=== PATIENT | male | born 1990 | race Caucasian/White ===

== ENCOUNTER 2024-08-29 09:56 | Inpatient (IN) | payer MEDICAID ==
[~2024-08-29] VITALS: Ht 165.1 cm; Wt 68.2 kg
--- NOTE | 2024-08-29 10:06 | Physician Documentation ---
History of Present Illness ~ Chief Complaint: Overdose Stated Complaint: OD Time Seen by MD: 09:59 Source: patient, EMS HPI 34-year-old male no pertinent medical history presenting for overdose. Patient reports feeling fine he went to the bathroom to use fentanyl he was found unresponsive on the floor. He was dragged out by EMS and slowly began waking up. She reports that he likely aspirated and had copious secretions which were suctioned in the field. Patient is currently awake endorsing fentanyl use and shortness of breath. No chest pain. Medication Reconciliation Allergies: Uncoded Allergies: PCN (Allergy, Unknown, 08/29/24) Review of Systems All Other Systems at this time: Reviewed and Negative Constitutional: Denies: fever Physical Exam Vital Signs: RN Vital Signs have been reviewed: Yes, Temperature: 97.7, Heart Rate: 104, Respiratory Rate: 17, BP: 121/79, Pulse Oximetry: 92, Weight: 68.180 Oxygen Flow Rate: 4.0 Physical Exam Diaphoretic Awake alert oriented, fatigued Pulmonary diffuse rhonchi right perez Cardiac no murmur Abdomen is soft nontender Lower extremity no edema Progress Progress Note 12:25 p.m. I reassessed the patient he had taken off his oxygen and his pulse oximeter. I reattached the pulse oximeter and his oxygen was 85% on room air with a good plus. Put him back on 2 L nasal cannula with improvement in O2 Results/Orders Reviewed/noted all lab results: Yes Results/Orders Orders - MARGI ENCINAS MD Chest,Single View (08/29/24 ) Culture Blood (08/29/24 12:03) Page Hospitalist (08/29/24 12:03) Fill Out Med Reconciliation (08/29/24 12:03) Completed Orders - MARGI ENCINAS MD Chest,Single View (08/29/24 ) Cbc/Diff (08/29/24 10:38) BMP (08/29/24 10:38) Troponin (Single) (08/29/24 10:38) PBNP (08/29/24 10:38) Man Diff (08/29/24 10:10) Pathology Review (08/29/24 10:10) Ringers Solution, Lacted (Lactated Ringe (08/29/24 12:05) Ampicillin/Sulbac 3gm/Ns 100ml (Unasyn 3 (08/29/24 14:00) Lacticsepsis (08/29/24 12:03) Electrocardiogram (08/29/24 09:58) Ceftriaxone 2gm/D5w 50ml Bag (Rocephin 2 (08/29/24 12:25) Drug Screen, Urine (08/29/24 12:26) Medications Received in ER Medications (Trade) Dose Ordered Sig/Anand Route PRN Reason Start Time Stop Time Status Last Admin Dose Admin Lactated Ringer's 1,000 ml @ 1,000 mls/hr ONCE ONCE IV 08/29/24 12:05 08/29/24 13:04 DC 08/29/24 12:48 1,000 MLS/HR Ceftriaxone Sodium/Dextrose 50 ml @ 100 mls/hr ONCE ONCE IV 08/29/24 12:25 08/29/24 12:55 DC 08/29/24 12:48 100 MLS/HR Sodium Chloride 1,000 ml @ 70 mls/hr [id number] IV 08/29/24 12:45 08/29/24 15:01 70 MLS/HR Vital Signs 08/29/24 08/29/24 08/29/24 08/29/24 09:57 10:53 11:23 11:24 Temp 97.7 97.7 97.7 Pulse 104 99 95 Resp 17 19 16 B/P (MAP) 121/79 124/74 (91) 111/69 (83) Pulse Ox 92 96 93 O2 Flow Rate 4.0 4.0 6.0 08/29/24 12:24 Pulse 87 Resp 16 B/P (MAP) 98/66 (77) Pulse Ox 87 O2 Flow Rate 0 Laboratory Tests Test 08/29/24 10:10 08/29/24 12:33 White Blood Count 15.5 H Red Blood Count 4.82 Hemoglobin 14.1 Hematocrit 44.4 Mean Corpuscular Volume 92.0 Mean Corpuscular Hemoglobin 29.2 Mean Corpuscular Hemoglobin Concent 31.7 L Red Cell Distribution Width 14.6 H Platelet Count 274 Mean Platelet Volume 9.6 Neutrophils (%) (Auto) 36.1 L Lymphocytes (%) (Auto) 53.7 H Monocytes (%) (Auto) 6.3 Eosinophils (%) (Auto) 3.1 Basophils (%) (Auto) 0.8 Neutrophils # (Auto) 5.6 Lymphocytes # (Auto) 8.3 H Monocytes # (Auto) 1.0 H Eosinophils # (Auto) 0.5 Basophils # (Auto) 0.1 CBC Comment Differential Total Cells Counted 100 Neutrophils % (Manual) 33.0 L Lymphocytes % (Manual) 56.0 H Monocytes % (Manual) 7.0 Eosinophils % (Manual) 4.0 Platelet Estimate Normal Red Blood Cell Morphology Normal Basophilic Stippling Hematology Pathologist Comment See note Sodium Level 140 Potassium Level 4.4 Chloride Level 103 Carbon Dioxide Level 22.8 L Anion Gap 14 Blood Urea Nitrogen 11 Creatinine 1.33 H Estimated GFR/1.73 m2 62 BUN/Creatinine Ratio 8.3 L Glucose Level 324 H Calcium Level 8.5 Troponin I High Sensitivity 38 Pro-B-Type Natriuretic Peptide 215 H Albumin 3.4 Chemistry Comments Lactic Acid Level 2.9 H Microbiology Date/Time Source Procedure Growth Status 08/29/24 12:33 Blood Arm Right Blood Culture - Preliminary NEGATIVE (LESS THAN 24 HOURS) Resulted EKG/XRAY/CT/US/VASC/MRI EKG : Additional Comment EKG independently interpreted by myself time 9:58 a.m. indication shortness of breath normal sinus rhythm rate 96 normal axis normal intervals LVH no ST abnormality Chest X-Ray : Additional Comments Chest x-ray independently interpreted by myself shows no pneumothorax, diffuse pulmonary edema no effusion Medical Decision Making Differential Dx:Considerations: Include: Drug Overdose-Accidental Additional Comment Aspiration pneumonia, pneumonitis Departure Disposition: ADMITTED INPATIENT Admitted to Inpatient Unit: to hospitalist Impression: Primary Impression: Pneumonia Qualified Codes: J18.9 - Pneumonia, unspecified organism Additional Impressions: Hyperglycemia Substance abuse Lactic acid acidosis Referrals: NO PRIMARY CARE PROVIDER (PCP) Critical Care Note Total Time (mins): 30 Critical Care Note The very real possibility of a deterioration of this patient's condition required the highest level of my preparedness for sudden, emergent intervention. I provided critical care services, which included medication orders, frequent reevaluations of the patient's condition and response to treatment, ordering and reviewing test results, and discussing the case with various consultants. Excludes time spent performing separately billable procedures. The critical care time associated with the care of the patient was 30 minutes in the management of lactic acidosis requiring intervention Signature Scribe Signature: shira Attestation: MARGI Castro MD Aug 29, 2024 10:06
--- NOTE | 2024-08-29 10:54 | RADIOLOGY REPORT ---
CHEST RADIOGRAPH Indication: sob Technique: Single frontal view of the chest was obtained Comparison: None FINDINGS: Lines and Tubes: None Lungs: No focal consolidation. Pleura: No effusion. No pneumothorax. Cardiomediastinal contours: Unremarkable Bones: No acute osseous abnormality. IMPRESSION: Pulmonary edema
[2024-08-29 10:55] LABS: BASOPHILS # (AUTO) 0.1 X10'3 (0-0.2); EOSINOPHILS # (AUTO) 0.5 X10'3 (0-0.9); LYMPHOCYTES % (AUTO) 53.7 % (21-51)
[2024-08-29 10:56] LABS: BASOPHILS % (AUTO) 0.8 % (0-1); EOSINOPHILS % (AUTO) 3.1 % (0-6); HEMATOCRIT 44.4 % (42.0-52.0); HEMOGLOBIN 14.1 g/dl (14.0-17.9); LYMPHOCYTES # (AUTO) 8.3 X10'3 (1.1-4.8); MEAN CORPUSCULAR HEMOGLOBIN 29.2 PG (27.0-31.0); MEAN CORPUSCULAR HGB CONC 31.7 g/dL (33.0-36.5); MEAN PLATELET VOLUME 9.6 FL (7.4-10.4); MONOCYTES % (AUTO) 6.3 % (2-12); NEUTROPHILS # (AUTO) 5.6 X10'3 (1.8-7.7); NEUTROPHILS % (AUTO) 36.1 % (42-75); PLATELET COUNT 274 X10'3 (140-440); RED BLOOD COUNT 4.82 X10'6 (4.70-6.10); RED CELL DISTRIBUTION WIDTH 14.6 % (11.5-14.5); WHITE BLOOD COUNT 15.5 X10'3 (4.5-11.0)
[2024-08-29 11:11] LABS: ALBUMIN 3.4 G/DL (3.4-5.0); ANION GAP 14 (8-16); BLOOD UREA NITROGEN 11 MG/DL (7-18); BUN/CREATININE RATIO 8.3 (10.0-20.0); CALCIUM 8.5 MG/DL (8.5-10.1); CHLORIDE 103 MMOL/L (99-107); CREATININE 1.33 MG/DL (0.60-1.10); POTASSIUM 4.4 MMOL/L (3.5-5.1); PRO BRAIN NATRIURETIC PEPTIDE 215 PG/ML (0-125); SODIUM 140 MMOL/L (135-145); TOTAL CARBON DIOXIDE 22.8 MMOL/L (24-32); eCRCL 69 ML/MIN; eGFR 62 ML/MIN
[2024-08-29 11:16] LABS: GLUCOSE 324 MG/DL (70-104)
[2024-08-29 11:23] LABS: PLATELET ESTIMATE NORMAL; TOTAL CELLS COUNTED 100
[2024-08-29] MEDS ORDERED: ampicillin/sulbac 3gm/NS 100ml 100 ML IV ONE ×2 (12:10→14:00)
--- NOTE | 2024-08-29 12:10 | ELECTROCARDIOGRAPH REPORT ---
[facility] Test Date: 2024-08-29 Test Time: 09:58:58 Pat Name: MELBA SHEN Department: EMERGENCY ROOM Room: Gender: M Medical Doctor Md/Medical Director: PRICILLA : 1990 Requested By: MARGI ENCINAS Order Number: [id number] Reading MD: Measurements Intervals [place] Rate: 96 P: 72 NM: 161 QRS: 76 QRSD: 92 T: -9 QT: 360 QTc: 455 Interpretive Statements Sinus rhythm Borderline T wave abnormalities Please click the below link to view image of tracing.
[2024-08-29] MEDS ORDERED: magnesium Cl slow-release 64mg tablet PO PRN (12:45)
[2024-08-29] MEDS ORDERED: potassium Cl 40MEQ/1/2NS 520ml 520 ML IV PRN (12:45)
[2024-08-29] MEDS ORDERED: magnesium sulf-water 2g/50mL 50 ML IV PRN (12:45)
[2024-08-29] MEDS ORDERED: acetaminophen 325mg tablet PO PRN ×2 (12:45)
[2024-08-29] MEDS ORDERED: potassium Cl 20 mEq SR tablet PO PRN ×2 (12:45)
[2024-08-29] MEDS ORDERED: magnesium sulf-water 4G/100mL 100 ML IV PRN (12:45)
[2024-08-29] MEDS ORDERED: ondansetron/PF 4mg/2ml inj IV PRN (12:45)
[2024-08-29] MEDS: CefTRIAXone 2gm/D5W 50ml BAG 50 ML IV ONE (12:48)
[2024-08-29] MEDS: ringers solution, lacted 1,000 ML IV ONE ×2 (12:48→21:14)
[2024-08-29 13:32] LABS: URINE AMPHETAMINE SCREEN NEGATIVE (Neg); URINE BARBITUATE SCREEN NEGATIVE (Neg); URINE BENZODIAZEPINES SCREEN NEGATIVE (Neg); URINE CANNABINOID SCREEN NEGATIVE (Neg); URINE COCAINE SCREEN NEGATIVE (Neg); URINE METHADONE SCREEN NEGATIVE (Neg); URINE OPIATE SCREEN NEGATIVE (Neg); URINE PHENCYCLIDINE SCREEN NEGATIVE (Neg)
[2024-08-29 14:17] LABS: ABG BASE EXCESS -5.3 mmol/L (-2.0-3.0); ABG HCO3 20.2 mmol/L (21.0-28.0); ABG OXYGEN SATURATION 89.8 % (94.0-98.0); ABG PCO2 (T) 38.3 mmHg (35.0-48.0); ABG PH (T) 7.337 (7.350-7.450); ABG PO2 (T) 58.4 mmHg (83.0-108.0); ALLEN'S TEST POSITIVE; FCOHb 0.3 % (0.5-1.5); FHHb 10.2 % (0.0-5.0); FLOW 5 L/min; FMetHb 0.1 % (0.0-1.5); FO2Hb 89.4 % (94.0-98.0); MODE NASAL CANNULA; PATIENT TEMPERATURE 36.5; TOTAL HEMOGLOBIN 14.7 G/dl (13.5-17.5)
[2024-08-29] MEDS: normal saline 1000ml 1,000 ML IV SCH (15:01)
[2024-08-29] MEDS: azithromycin/NS 500mg/250ml 250 ML IV SCH (15:02)
[2024-08-29 17:22] VITALS: PULSE 90; RESP 17; O2SAT 93
[2024-08-29] MEDS: albuterol 2.5 MG/3 ML nebule NEB SCH (17:22)
[2024-08-29 17:30] VITALS: PULSE 83; RESP 27
[2024-08-29] MEDS ORDERED: NO HOME MEDS (17:43)
[2024-08-29 18:00] VITALS: BP 111/48; PULSE 92; RESP 13; TEMP 98.5; O2SAT 98
[2024-08-29] MEDS: methylPREDNISolone sod succ 125mg/2ml vial IV SCH (19:49)
[2024-08-29] MEDS: heparin, porcine 5000 units/ml vial SQ SCH (19:50)
[2024-08-29 20:00] VITALS: RESP 13; O2SAT 98
[2024-08-29] MEDS: nicotine 14mg patch - 24hr TD SCH (20:05)
--- NOTE | 2024-08-29 20:07 | HISTORY AND PHYSICAL ---
History & Physical Providers to ~ History of Present Illness Reason for Admit\Complaint: Incidental fentanyl overdose History of Present Illness Patient is 34-year-old male with no pertinent past medical history. He lives in sober living environment currently. He mentioned that he was on Suboxone which he gets from [facility] in [place]. He ran out of his Suboxone and to prevent the withdrawals he took the fentanyl from [facility]. When he took fentanyl he was with his . He went to the bathroom to use fentanyl and he was found unresponsive on the floor.He was dragged out by EMS and slowly began waking up. he reports that he likely aspirated and had copious secretions which were suctioned in the field. Patient is currently awake endorsing fentanyl use and shortness of breath. No chest pain. Patient does not use any other medications and has no primary care physician at this point of time. Patient does use vaping. Further workup done in ER x-ray showed, diffuse pulmonary edema no effusion. He was requiring 3-4 L of oxygen in ER. Hospitalist services contacted for admission for aspiration pneumonia and pneumonitis. Patient denies any other symptoms . Allergies: Uncoded Allergies: PCN (Allergy, Unknown, 08/29/24) Home Medications Home Medications Active Reported No Home Medications (Home Med List) Each Past Medical History Past Medical History No pertinent past medical history Past Surgical History Surgical History Comment No pertinent past surgical history Past Social History Social History Comment He lives in sober living environment currently. Able to ambulate. He does vape denied use of any alcohol. Fentanyl use present Exam Vitals: Vital Signs Date Time Temp Pulse Resp B/P (MAP) Pulse Ox O2 Delivery O2 Flow Rate FiO2 08/29/24 18:30 97 08/29/24 17:30 27 Room Air 0.0 21 08/29/24 17:22 93 08/29/24 16:35 97.7 105/57 (73) General: General-patient not in any acute distress, alert awake oriented, ill-appearing, age-appropriate HEENT-atraumatic normocephalic, neck supple without elevated JVD, no thyromegaly or carotid bruit. No lymphadenopathy bilaterally. Eyes-no icterus or pallor seen in eyes Chest-decreased lung sounds to auscultation bilaterally, breathing nonlabored no tachypnea, no wheezing, no crepitation, no crackles. Heart-S1-S2 normal, regular heart rate no murmur Abdomen bowel sounds positive on auscultation, soft nondistended nontender no guarding, no rigidity Skin no active skin rash Neurology-grossly intact, nonfocal alert awake oriented Extremity- no pedal edema able to move all 4 extremities Psychiatry - patient is not confused or agitated cooperated during physical examination Diagnostic Data Last Recorded Lab Results: 08/29/24 1010 08/29/24 1010 Additional Plan Patient is 34-year-old male with no pertinent past medical history. Patient is admitted for aspiration pneumonia and pneumonitis, Drug Overdose- AccidentalLactic acid acidosis. Patient is started on nebulizer, steroids and antibiotic therapy. We will continue to monitor patient's vitals and oxygen saturation. Patient was strongly advised to quit smoking drugs and risks explained. Geospatial Developer consultation ordered. Code status discussed with the patient patient wishes to stay full code. Patient's current condition is guarded I will continue to follow patient in a.m. further management depending on response to treatment. Date of Service: Aug 29, 2024 Billing Provider: MARGIE PEARSON MD Common Visit Codes: [id number] INP/OBS CARE (HIGH) Secondary Visit Codes: [id number] CARE PLAN 30 MINUTES MARGIE PEARSON MD Aug 29, 2024 20:07
[2024-08-29 22:00] VITALS: BP 125/63; PULSE 100; RESP 20; TEMP 98.3; O2SAT 96
[2024-08-29] MEDS: loperamide 2mg capsule PO PRN (22:52)
[2024-08-29] MEDS: LORazepam 0.5 MG tablet PO PRN (22:52)
[2024-08-29] MEDS: OLANZapine **IM** 10 mg inj. IM ONE (23:41)
[2024-08-29] MEDS: LORazepam 1 MG tablet PO PRN (23:42)
[2024-08-30] VITALS (28 sets, daily range): BP systolic 105–146; BP diastolic 55–110; PULSE 40–146; RESP 17–42; O2SAT 93–99
[2024-08-30] MEDS ORDERED: haloperidol lactate 5mg/ml inj IM PRN (00:10)
[2024-08-30] MEDS: haloperidol lactate 5mg/ml inj IM ONE ×2 (00:29→01:02)
[2024-08-30] MEDS: LORazepam 2 mg/ml vial IV ONE (01:19)
[2024-08-30] MEDS: dexmedetomidin/NS 400mcg/100ml 100 ML IV SCH (02:54)
[2024-08-30] MEDS ORDERED: haloperidol lactate 5mg/ml inj IVH PRN (03:15)
--- NOTE | 2024-08-30 03:19 | HISTORY AND PHYSICAL ---
History & Physical - Short Providers to CC ~ History of Present Illness Chief Complain & History Altered mental status, agitation Patient is 34-year-old male with no pertinent past medical history. History from CHART. He lives in sober living environment currently. He mentioned that he was on Suboxone which he gets from [facility] in [place]. He ran out of his Suboxone and to prevent the withdrawals he took the fentanyl from [facility]. When he took fentanyl he was with his . He went to the bathroom to use fentanyl and he was found unresponsive on the floor.He was dragged out by EMS and slowly began waking up. he reports that he likely aspirated and had copious secretions which were suctioned in the field. Patient is currently awake endorsing fentanyl use and shortness of breath. No chest pain. Patient does not use any other medications and has no primary care physician at this point of time. Patient does use vaping. Further workup done in ER x-ray showed, diffuse pulmonary edema no effusion. He was requiring 3-4 L of oxygen in ER.Admitted to floor and given ativan and Haldol. Transferred to ICU for withdrawal and agitation. Allergies: Uncoded Allergies: PCN (Allergy, Unknown, 08/29/24) Home Medications Home Medications Active Reported No Home Medications (Home Med List) Each Past Medical History Past Medical History Drug abuse Exam Last recorded Lab results: 08/29/24 1010 08/29/24 1010 Vitals: Vital Signs Date Time Temp Pulse Resp B/P (MAP) Pulse Ox O2 Delivery O2 Flow Rate FiO2 08/30/24 03:00 98.6 110 39 146/110 (122) 93 Nasal Cannula 2.0 08/30/24 00:00 36 Counseling Services Smoking & Tobacco Cessation: N/A Advance Care Planning Advanced Care planning: N/A Problem\Assessment\Plan Additional Plan Impression: 1. Drug withdrawal 2. Agitation 3. Altered mental status 4. Leukocytosis Plan: Admit to ICU Ativan 1 mg IV q1hprn agitation Haldol 1 mg IV q1hprn agitation ANtibiotics empiric UA, Blood cx 2 Precedex drip Monitor for any seizure activity Low threshold for intubation and seadation Full code DVT ppx LULY NIETO MD Aug 30, 2024 03:19
[2024-08-30] MEDS: LORazepam 2 mg/ml vial ONE (03:41)
[2024-08-30] MEDS: LORazepam 2 mg/ml vial IV PRN (03:41)
[2024-08-30 03:54] LABS: BASOPHILS % (AUTO) 0.1 % (0-1); EOSINOPHILS % (AUTO) 0 % (0-6); HEMATOCRIT 37.6 % (42.0-52.0); HEMOGLOBIN 13.1 g/dl (14.0-17.9); LYMPHOCYTES # (AUTO) 0.8 X10'3 (1.1-4.8); LYMPHOCYTES % (AUTO) 5.9 % (21-51); MEAN CORPUSCULAR HEMOGLOBIN 29.8 PG (27.0-31.0); MEAN CORPUSCULAR HGB CONC 34.8 g/dL (33.0-36.5); MEAN CORPUSCULAR VOLUME 85.6 FL (78-98); MEAN PLATELET VOLUME 8.5 FL (7.4-10.4); MONOCYTES # (AUTO) 0.3 X10'3 (0-0.9); MONOCYTES % (AUTO) 1.9 % (2-12); NEUTROPHILS # (AUTO) 12.1 X10'3 (1.8-7.7); NEUTROPHILS % (AUTO) 92.1 % (42-75); PLATELET COUNT 228 X10'3 (140-440); RED BLOOD COUNT 4.39 X10'6 (4.70-6.10); RED CELL DISTRIBUTION WIDTH 13.8 % (11.5-14.5); WHITE BLOOD COUNT 13.2 X10'3 (4.5-11.0)
[2024-08-30 04:16] LABS: ALANINE AMINOTRANSFERASE 31 U/L (12-78); ALBUMIN 3.4 G/DL (3.4-5.0); ALBUMIN/GLOBULIN RATIO 1.1 (1.1-1.5); ALKALINE PHOSPHATASE 62 IU/L (46-116); ANION GAP 9 (8-16); ASPARTATE AMINO TRANSFERASE 45 U/L (10-37); BILIRUBIN,TOTAL 0.6 MG/DL (0.1-1.0); BLOOD UREA NITROGEN 9 MG/DL (7-18); BUN/CREATININE RATIO 11.8 (10.0-20.0); CALCIUM 9.1 MG/DL (8.5-10.1); CHLORIDE 110 MMOL/L (99-107); CREATININE 0.76 MG/DL (0.60-1.10); GLUCOSE 147 MG/DL (70-104); MAGNESIUM 1.6 MG/DL (1.5-2.4); SODIUM 145 MMOL/L (135-145); TOTAL CARBON DIOXIDE 26.4 MMOL/L (24-32); TOTAL PROTEIN 6.6 G/DL (6.4-8.2); eCRCL 120 ML/MIN; eGFR > 90 ML/MIN
[2024-08-30 04:24] LABS: PHOSPHORUS 0.9 MG/DL (2.3-4.5)
--- NOTE | 2024-08-30 06:23 | PROGRESS NOTE ---
Progress Note Dictate Providers to CC ~ Progress Note: No new acute issues overnight Central Line/PICC still needed: N\A Bonner Indications Met/Not Met: F/C Indications Met Antibiotic Ordered?: Yes Subjective Subjective Comfortable Objective Vitals Vital Signs Date Time Temp Pulse Resp B/P (MAP) Pulse Ox O2 Delivery O2 Flow Rate FiO2 08/30/24 06:00 53 17 136/78 (97) 98 Nasal Cannula 2.0 08/30/24 05:00 97.7 08/30/24 03:44 36 Lab Results: 08/30/24 0343 08/30/24 0343 Objective Heart: S1-2 reg Lungs: clear Abdomen: Soft, non-tender, BS (+) Ext: No edema Neuro: arousable Problem\Assessment\Plan Additional Plan 1-Accidental Drug OD -Supportive Tx 2-Agitation -Wean off Precedex -Start PO Librium? Eduardo Haro CC time 35min Sepsis Screening Reassessment Date: Aug 30, 2024 JENNIFER HARO MD Aug 30, 2024 06:23
[2024-08-30] MEDS: sodium phosphate inj. 30 MMOL in dextrose 5%-water 250 ML IV ONE (07:17)
[2024-08-30] MEDS ORDERED: CefTRIAXone 2gm/D5W 50ml BAG 50 ML IV SCH (08:00)
[2024-08-30] MEDS: Neutra Phos packet PO SCH (13:00)
--- NOTE | 2024-08-30 20:41 | PROGRESS NOTE ---
Daily Progress Note Providers to CC ~ Antibiotic Timeout Antibiotic Ordered?: No Subjective Patient was completely different person for me today in CICU. He was anxious agitated on restraints on sedative medication barely responded to verbal commands. Objective Vital Signs Date Time Temp Pulse Resp B/P (MAP) Pulse Ox O2 Delivery O2 Flow Rate FiO2 08/30/24 19:43 117/89 08/30/24 19:00 95 Nasal Cannula* 2 28 08/30/24 18:00 80 20 08/30/24 16:00 97.7 Result Diagram: 08/30/24 0343 08/30/24 0343 General-patient appear ill , barely responded HEENT-atraumatic normocephalic, neck supple without elevated JVD, Eyes-no icterus or pallor seen in eyes Chest-decreased lung sounds to auscultation bilaterally, breathing nonlabored Heart-S1-S2 normal, regular heart rate no murmur Abdomen bowel sounds positive on auscultation, soft nondistended nontender no guarding, no rigidity Skin no active skin rash Neurology-patient is very confused unable to communicate and barely responded to verbal commands Extremity- no pedal edema Psychiatry - patient is confused and agitated barely cooperated during physical examination Problem\Assessment\Plan 08/29/24- Patient is 34-year-old male with no pertinent past medical history. P atient is admitted for aspiration pneumonia and pneumonitis, Drug Overdose- AccidentalLactic acid acidosis. Patient is started on nebulizer, steroids and antibiotic therapy. We will continue to monitor patient's vitals and oxygen saturation. Patient was strongly advised to quit smoking drugs and risks explained. Patient Service Technician Pst consultation ordered. Code status discussed with the patient patient wishes to stay full code. 08/30/24- patient is under shingle sawyer care and we will continue to follow patient along with the shingle sawyer team . Labs reviewed. Patient's current condition is guarded incoming hospitalist will continue to follow patient in a.m. further management depending on response to treatment. Date of Service: Aug 30, 2024 Billing Provider: MARGIE PEARSON MD Common Visit Codes: [id number] INP/OBS CARE(MOD) MARGIE PEARSON MD Aug 30, 2024 20:41
[2024-08-30 20:45] LABS: ALBUMIN 3.4 G/DL (3.4-5.0); ANION GAP 8 (8-16); BLOOD UREA NITROGEN 10 MG/DL (7-18); BUN/CREATININE RATIO 14.1 (10.0-20.0); CALCIUM 8.9 MG/DL (8.5-10.1); CHLORIDE 114 MMOL/L (99-107); CREATININE 0.71 MG/DL (0.60-1.10); GLUCOSE 81 MG/DL (70-104); MAGNESIUM 1.8 MG/DL (1.5-2.4); PHOSPHORUS 2.3 MG/DL (2.3-4.5); POTASSIUM 3.9 MMOL/L (3.5-5.1); SODIUM 149 MMOL/L (135-145); TOTAL CARBON DIOXIDE 27.2 MMOL/L (24-32); eCRCL 129 ML/MIN; eGFR > 90 ML/MIN
[2024-08-31] VITALS (11 sets, daily range): BP systolic 111–135; BP diastolic 57–105; PULSE 61–87; RESP 11–50; O2SAT 95–100
[2024-08-31 02:20] LABS: ALANINE AMINOTRANSFERASE 32 U/L (12-78); ALBUMIN 3.2 G/DL (3.4-5.0); ALBUMIN/GLOBULIN RATIO 1.1 (1.1-1.5); ALKALINE PHOSPHATASE 56 IU/L (46-116); ANION GAP 10 (8-16); ASPARTATE AMINO TRANSFERASE 30 U/L (10-37); BILIRUBIN,TOTAL 0.7 MG/DL (0.1-1.0); BLOOD UREA NITROGEN 11 MG/DL (7-18); BUN/CREATININE RATIO 16.2 (10.0-20.0); CALCIUM 8.8 MG/DL (8.5-10.1); CHLORIDE 114 MMOL/L (99-107); CREATININE 0.68 MG/DL (0.60-1.10); GLUCOSE 94 MG/DL (70-104); POTASSIUM 3.8 MMOL/L (3.5-5.1); SODIUM 150 MMOL/L (135-145); TOTAL CARBON DIOXIDE 25.9 MMOL/L (24-32); eCRCL 134 ML/MIN; eGFR > 90 ML/MIN
[2024-08-31 02:28] LABS: BASOPHILS % (AUTO) 0.2 % (0-1); EOSINOPHILS % (AUTO) 0.5 % (0-6); HEMATOCRIT 38.5 % (42.0-52.0); HEMOGLOBIN 13.1 g/dl (14.0-17.9); LYMPHOCYTES # (AUTO) 1.8 X10'3 (1.1-4.8); LYMPHOCYTES % (AUTO) 20.8 % (21-51); MEAN CORPUSCULAR HEMOGLOBIN 29.6 PG (27.0-31.0); MEAN CORPUSCULAR HGB CONC 34.1 g/dL (33.0-36.5); MEAN CORPUSCULAR VOLUME 86.9 FL (78-98); MEAN PLATELET VOLUME 8.5 FL (7.4-10.4); MONOCYTES # (AUTO) 0.7 X10'3 (0-0.9); MONOCYTES % (AUTO) 8.3 % (2-12); NEUTROPHILS # (AUTO) 6.1 X10'3 (1.8-7.7); NEUTROPHILS % (AUTO) 70.2 % (42-75); PLATELET COUNT 218 X10'3 (140-440); RED BLOOD COUNT 4.43 X10'6 (4.70-6.10); RED CELL DISTRIBUTION WIDTH 14.1 % (11.5-14.5); WHITE BLOOD COUNT 8.7 X10'3 (4.5-11.0)
--- NOTE | 2024-08-31 06:21 | PROGRESS NOTE ---
Progress Note Dictate Providers to CC ~ Progress Note: No new acute issues overnight Central Line/PICC still needed: N\A Bonner Indications Met/Not Met: F/C Indications Not Met Antibiotic Ordered?: No Subjective Subjective Comfortable Objective Vitals Vital Signs Date Time Temp Pulse Resp B/P (MAP) Pulse Ox O2 Delivery O2 Flow Rate FiO2 08/31/24 06:00 68 11 133/105 (114) 96 Room Air 08/31/24 04:00 98.6 08/30/24 20:00 2.0 08/30/24 19:00 28 Lab Results: 08/31/24 0221 08/31/24 0154 Objective Heart: S1-2 reg Lungs: clear Abdomen: Soft, non-tender, BS (+) Ext: No edema Neuro: awake Problem\Assessment\Plan Additional Plan 1-Drug OD -Psych eval as outpt -Supportive Tx Anticipate transfer soon A Tahir Sepsis Screening Reassessment Date: Aug 31, 2024 JENNIFER MEDEIROS MD Aug 31, 2024 06:21
[2024-08-31] MEDS: chlordiazePOXIDE 25mg capsule PO SCH (07:53)
[2024-08-31] MEDS ORDERED: BUPR1FIL3 SL (10:54)
--- NOTE | 2024-08-31 18:24 | DISCHARGE SUMMARY ---
Discharge Summary Providers to CC ~ Discharge Summary Admission Diagnosis: substance abuse , aspiration pneumonia Hospital Course DATE OF ADMISSION: 08/29/2024 DATE OF DISCHARGE: 08/31/2024 Discharge Diagnosis\\Comment: Fentanyl overdose, possible aspiration pneumonia, ANN-MARIE Operations\\Procedures: None Consultants: Substance use dino Pineda Complications: None Condition on DC: Stable New Medications: Buprenorphine Hcl/Naloxone Hcl (Suboxone 8 Mg-2 Mg Sl Film) 8 Mg-2 Mg Film 1 STRIP SL DAILY for 30 Days, #30 STRIP Continued Medications: Home Med List (No Home Medications) Each Discharge Summary: The patient was admitted by Dr.Renu Bang with the following HPI:"Patient is 34-year-old male with no pertinent past medical history. He lives in sober living environment currently. He mentioned that he was on Suboxone which he gets from [facility] in [place]. He ran out of his Suboxone and to prevent the withdrawals he took the fentanyl from [facility]. When he took fentanyl he was with his . He went to the bathroom to use fentanyl and he was found unresponsive on the floor.He was dragged out by EMS and slowly began waking up. he reports that he likely aspirated and had copious secretions which were suctioned in the field. Patient is currently awake endorsing fentanyl use and shortness of breath. No chest pain. Patient does not use any other medications and has no primary care physician at this point of time. Patient does use vaping. Further workup done in ER x-ray showed, diffuse pulmonary edema no effusion. He was requiring 3-4 L of oxygen in ER. Hospitalist services contacted for admission for aspiration pneumonia and pneumonitis. Patient denies any other symptoms ." The patient received one dose of IV azithromycin IV Rocephin for possible aspiration pneumonia however did not receive any further antibiotics in his white blood cell count normalized and the patient's oxygen saturation was in the high 90s on room air day of discharge. The patient has a a Substance use navigaileen Pineda consult and resources were given. The patient was also given a prescription for Suboxone,8mg-2mg. The patient is not require any antibiotics or steroids for discharge. As the patient was afebrile and has a normal white blood cell count. Gen. No acute distress alert and oriented 4 Lungs clear to ascultation bilaterally, no wheezes rales or rhonchi appreciated Heart normal sinus rhythm no murmurs rubs or clicks noted Abdomen soft nontender bowel sounds are normoactive Lower extremities no clubbing cyanosis, nor edema appreciated bilaterally The patient felt ready to be discharged and was medically cleared to be discha rged on 08/31/2024 The patient was seen and evaluated on day of discharge. Time spent on discharge 35 minutes *Problems/Diagnosis: (1) Substance abuse Status: Acute Total Time Spent on D/C: > 30 Minutes Date of Service: Aug 31, 2024 Billing Provider: NEWTON CONTEH DO Common Visit Codes: [id number] INP/OBS CARE(HIGH) NEWTON CONTEH DO Aug 31, 2024 18:23
== END 2024-08-31 12:00 | disposition home or self-care (01) | DRG 812 ==
LOC: ER 09:56 → ED HOLD 12:48 → PCU 3S 17:59 → CICU 2S 08-30 02:40
PROVIDERS: ADMIT Internal Medicine; ATTEND Internal Medicine
DX: T40.411A Poisoning by fentanyl or fentanyl analogs, accidental (unintentional), initial encounter (principal); J69.0 Pneumonitis due to inhalation of food and vomit; N17.9 Acute kidney failure, unspecified; R73.9 Hyperglycemia, unspecified; F19.10 Other psychoactive substance abuse, uncomplicated; J98.4 Other disorders of lung; E87.20 Acidosis, unspecified; Y92.89 Other specified places as the place of occurrence of the external cause; Z88.0 Allergy status to penicillin
CPT/HCPCS: 36415; 36600; 71045; 80048; 80053; 80305; 80320; 82803; 82948; 83036; 83605; 83735; 83880; 84100; 84484; 85007; 85018; 85025; 87040; 87081; 87088; 93005; 94640; 94760; 96365; 99291; A4615; A4620; A6258; A6590; G0378; J0456; J0696; J1630; J1644; J2060; J2919; J3490; J7030; J7060; J7120